=== PATIENT | female | born 1950 | race Caucasian/White ===

== ENCOUNTER 2017-05-10 11:31 | Day surgery (SDC) | payer MEDICARE, OTHER ==
[~2017-05-10] VITALS: Ht 154.9 cm; Wt 77.7 kg
[~2017-05-10 11:31] MED LIST: BACITRACIN 50,000 UNITS/VIAL ONE; BUPIVACAINE HCL/PF 0.5% 30 ML VIAL ONE; HYDROGEN PEROXIDE 473 ML SOLUTION ONE; LIDOCAINE HCL 1%/EPI 1:200,000/PF 30 ML VIAL ONE; SODIUM CHLORIDE 0.9% 500 ML IV ONE
[2017-05-10] MEDS ORDERED: SODIUM CHLORIDE 0.9% 1,000 ML IV ONE ×3 (11:35→14:14)
[2017-05-10] MEDS ORDERED: CeFAZolin 1 GM/DEXTROSE 50 ML IV ONE ×2 (11:35→13:00)
[2017-05-10] MEDS ORDERED: FentaNYL CITRATE-PF 100 MCG/2 ML VIAL IVP ONE (12:00)
[2017-05-10] MEDS ORDERED: MIDAZOLAM HCL 2 MG/2 ML VIAL IVP ONE (12:00)
[2017-05-10] MEDS ORDERED: LIDOCAINE HCL/PF 2% 5 ML VIAL INJ ONE (12:00)
[2017-05-10] MEDS ORDERED: ONDANSETRON HCL 4 MG/2 ML VIAL IVP ONE (12:00)
[2017-05-10] MEDS ORDERED: DiphenhydrAMINE HCL 50 MG/ML VIAL IVP ONE (12:00)
[2017-05-10] MEDS ORDERED: METOCLOPRAMIDE HCL 5 MG/ML 2 ML VIAL IVP ONE (12:00)
[2017-05-10] MEDS ORDERED: PROPOFOL 1% 20 ML VIAL IVP ONE (12:00)
[2017-05-10] MEDS ORDERED: RIVA20TA PO (12:11)
[2017-05-10 12:17] LABS: GLUCOSE COMMENT 1 Doctor Notified; GLUCOSE,POINT OF CARE 69 MG/DL (70-110)
[2017-05-10] MEDS ORDERED: INSNOV SQ (12:18)
[2017-05-10] MEDS ORDERED: LISI-661 PO (12:18)
[2017-05-10] MEDS ORDERED: METO50 PO (12:18)
[2017-05-10] MEDS ORDERED: NITR.4 SL (12:18)
[2017-05-10] MEDS ORDERED: INSLAN SQ (12:18)
[2017-05-10] MEDS ORDERED: FURO20 PO (12:18)
[2017-05-10] MEDS ORDERED: METF850T2 PO (12:18)
[2017-05-10] MEDS ORDERED: ATOR40TA28 PO (12:18)
[2017-05-10] MEDS ORDERED: MEPERIDINE-PF 25 MG/ML SYRINGE IVP PRN (13:00)
[2017-05-10] MEDS ORDERED: HYDROmorphone 2 MG/ML SYRINGE IVP PRN (13:00)
[2017-05-10] MEDS ORDERED: FentaNYL CITRATE-PF 100 MCG/2 ML VIAL IVP PRN (13:00)
[2017-05-10 15:16] LABS: GLUCOSE,POINT OF CARE 97 MG/DL (70-110)
[2017-05-10] MEDS ORDERED: OXYGEN THERAPY IH SCH (20:00)
== END 2017-05-10 15:35 | disposition home or self-care (01) ==
LOC: SDS 11:31 → EDSTATUS 14:00 → SDS 15:35
PROVIDERS: ATTEND Pain Medicine Interventional Pain Medicine
DX: Z45.49 Encounter for adjustment and management of other implanted nervous system device (principal); M54.16 Radiculopathy, lumbar region; M54.12 Radiculopathy, cervical region; M54.5 Low back pain; E11.9 Type 2 diabetes mellitus without complications; I25.10 Atherosclerotic heart disease of native coronary artery without angina pectoris; E78.00 Pure hypercholesterolemia, unspecified; F17.210 Nicotine dependence, cigarettes, uncomplicated; Z88.4 Allergy status to anesthetic agent; Z98.890 Other specified postprocedural states; Z86.79 Personal history of other diseases of the circulatory system
CPT/HCPCS: 63661; 63688; 82962; 88300; J0690; J1200; J2250; J2405; J2704; J2765; J3010; J3490 ×4; J7030